=== PATIENT | female | born 1960 | race Caucasian/White ===

== ENCOUNTER → 2024-11-14 | Outpatient (CLI) | payer MEDICARE, BC ==
[~2024-11-14] MED LIST: ACET65TA OR; ASPI81TA83 OR; IBUP600T OR; PLAV75TA2 OR; TRAZ100T OR
== END ==
LOC: M SLEEP 20:00
PROVIDERS: ATTEND Physician Assistant
DX: G47.33 Obstructive sleep apnea (adult) (pediatric) (principal)